=== PATIENT | female | born 1975 | race Caucasian/White ===

== ENCOUNTER 2021-05-31 17:45 | Emergency (ER) | payer OTHER ==
[2021-05-31] MEDS ORDERED: NA CHLORIDE 0.9% 1,000 ML ONE ×2 (20:41→22:51)
[2021-05-31 20:42] LABS: Absolute Lymphocytes (CBC) 2.2 K/uL (0.7-4.9); Basophils % 0.6 % (0-1.3); Hematocrit 38.4 % (36.0-45.0); Lymphocytes % 43.9 % (15.3-44.8); MPV 9.5 fL (7.6-11.3); RBC Red Blood Cell Count 3.93 M/uL (3.86-4.86)
[2021-05-31 21:11] LABS: Potassium 3.9 mmol/L (3.5-5.1)
--- NOTE | 2021-05-31 21:52 | RAD REPORT ---
EXAM DESCRIPTION: RAD - Chest Single View - 05/31/2021 8:57 pm CLINICAL HISTORY: Cough;Fever COMPARISON: None TECHNIQUE: AP portable chest image was obtained 05/31/2021 8:57 pm . FINDINGS: No focal consolidation. Slight increased markings in the left base relative to the right o n this baseline study. Minimal left base infiltrate is questioned and can be correlated with physical exam findings. Trachea is midline. No failure or volume overload. Heart and vasculature are normal. No measurable pleural effusion and no pneumothorax. No acute bony abnormality seen. No acute aortic f indings suspected. IMPRESSION: Baseline study showing slight increase in markings at the left base. Early left base pne umonia should be considered.
[2021-05-31 22:36] LABS: Urine Blood Negative (Negative); Urine Glucose Negative (Negative); Urine Protein Trace (Negative); Urine Specific Gravity >=1.030 (1.005-1.030)
[2021-05-31 22:39] LABS: Urine Specific Gravity/Preg >1.030 (1.005-1.030)
[2021-05-31 23:09] LABS: Urine Bacteria 20-50 /HPF (<20); Urine Mucus 3+ /HPF (NONE SEEN)
[2021-06-01] MEDS ORDERED: CEFTRIAXONE/SWI 1gm 1 GM/10 ML SYR ONE (00:01)
--- NOTE | 2021-06-01 00:55 | EDPHYS ---
Physician Documentation [facility] Name: Laura Cervantes Age: 45 yrs Sex: Female : 1975 Arrival Date: 05/31/2021 Time: 17:49 Bed 6 Private MD: ED Physician Neptali Vasquez HPI: 05/31 20:16 This 45 yrs old Female presents to ER via Ambulatory with complaints of pkl Fever, Chills. 20:16 The patient or guardian reports cough, with no sputum. Onset: The symptoms/episode pkl began/occurred 3 day(s) ago. Associated signs and symptoms: Pertinent positives: fever, sore throat, body aches and loss of taste. 20:16 Patient's tested positive for Covid 19 5 days ago. pkl Historical: - Allergies: 18:20 Sulfa (Sulfonamide Antibiotics); tw2 - Home Meds: 18:20 pantoprazole 20 mg oral TbEC 1 tab once daily [Active]; Zofran 4 mg Oral tab 2 tabs tw2 [Active]; - PMHx: 18:20 stomach cancer; tw2 - PSHx: 18:20 Appendectomy; uterus; multiple stomach surgeries; tw2 - Immunization history:: Client reports having NOT received the Covid vaccine. - Social history:: Smoking status: Patient denies any tobacco usage or history of. ROS: 20:16 Eyes: Negative for injury, pain, redness, and discharge. pkl 20:16 ENT: Positive for sore throat. 20:16 Neck: Negative for stiffness. 20:16 Cardiovascular: Negative for chest pain. 20:16 Respiratory: Positive for cough, with no reported sputum. 20:16 Abdomen/GI: Negative for abdominal pain, nausea, vomiting, and diarrhea. 20:16 Back: Negative for acute changes. 20:16 : Negative for urinary symptoms. 20:16 MS/extremity: Negative for acute changes. 20:16 Skin: Negative for rash. 20:16 Neuro: Negative for altered mental status, loss of consciousness. Exam: 20:16 Head/Face: Normocephalic, atraumatic. Eyes: Pupils equal round and reactive to light, pkl extra-ocular motions intact. Lids and lashes normal. Conjunctiva and sclera are non-icteric and not injected. Cornea within normal limits. Periorbital areas with no swelling, redness, or edema. ENT: Nares patent. No nasal discharge, no septal abnormalities noted. Tympanic membranes are normal and external auditory canals are clear. Oropharynx with no redness, swelling, or masses, exudates, or evidence of obstruction, uvula midline. Mucous membranes moist. Neck: Trachea midline, no thyromegaly or masses palpated, and no cervical lymphadenopathy. Supple, full range of motion without nuchal rigidity, or vertebral point tenderness. No Meningismus. Chest/axilla: Normal chest wall appearance and motion. Nontender with no deformity. No lesions are appreciated. Cardiovascular: Regular rate and rhythm with a normal S1 and S2. No gallops, murmurs, or rubs. Normal PMI, no JVD. No pulse deficits. Respiratory: Lungs have equal breath sounds bilaterally, clear to auscultation and percussion. No rales, rhonchi or wheezes noted. No increased work of breathing, no retractions or nasal flaring. Abdomen/GI: Soft, non-tender, with normal bowel sounds. No distension or tympany. No guarding or rebound. No evidence of tenderness throughout. Back: No spinal tenderness. No costovertebral tenderness. Full range of motion. Skin: Warm, dry with normal turgor. Normal color with no rashes, no lesions, and no evidence of cellulitis. MS/ Extremity: Pulses equal, no cyanosis. Neurovascular intact. Full, normal range of motion. Neuro: Awake and alert, GCS 15, oriented to person, place, time, and situation. Cranial nerves II-XII grossly intact. Motor strength 5/5 in all extremities. Sensory grossly intact. Cerebellar exam normal. Normal gait. Vital Signs: 18:19 BP 115 / 87; Pulse 99; Resp 17; Temp 98.2(TE); Pulse Ox 100% on R/A; Weight 58.97 kg tw2 (R); Height 5 ft. 1 in. (154.94 cm); 23:16 BP 115 / 78; Pulse 94; Resp 16; Pulse Ox 98% ; ea 06/01 01:00 BP 125 / 65; Pulse 88; Resp 18; Pulse Ox 98% on R/A; ea 05/31 18:19 Body Mass Index 24.56 (58.97 kg, 154.94 cm) tw2 MDM: 05/31 19:59 Patient medically screened. pkl 06/01 00:51 Data reviewed: vital signs, nurses notes, lab test result(s), radiologic studies. ED pkl course: Patient feeling better. Advised quaratine 10 days. To return if any difficulty breathing. Patient understood instructions. 05/31 20:12 Order name: CBC with Diff; Complete Time: 21:37 pkl 05/31 20:12 Order name: Chem 7; Complete Time: 21:37 pk 05/31 20:12 Order name: Strep; Complete Time: 21:37 pk 05/31 20:15 Order name: Lactate; Complete Time: 21:37 [facility] 05/31 20:57 Order name: Throat Culture [facility] 05/31 22:35 Order name: Urine --Ancillary (enter results); Complete Time: 22:53 [facility] 05/31 22:36 Order name: Urine Dipstick-Ancillary; Complete Time: 22:53 [facility] 05/31 22:38 Order name: Urine Culture [facility] 05/31 22:38 Order name: Urine Microscopic Only; Complete Time: 23:33 [facility] 05/31 22:42 Order name: SARS-COV-2 RT PCR; Complete Time: 22:53 [facility] 06/01 00:37 Order name: Lactate Sepsis 2 HR Follow-up; Complete Time: 00:50 [facility] 05/31 20:08 Order name: Urine Dipstick-Ancillary (obtain specimen); Complete Time: 22:35 05/31 20:14 Order name: XRAY CXR (1 view); Complete Time: 22:11 pkl Administered Medications: 05/31 20:21 Drug: NS 0.9% 1000 ml Route: IV; Rate: 1000 ml; Site: right antecubital; [facility] 06/01 01:12 Follow up: Response: No adverse reaction; IV Status: Completed infusion; IV Intake: ea 1000ml 05/31 21:15 Drug: NS 0.9% (30 ml/kg) 30 ml/kg Route: IV; Rate: bolus; Site: right hand; 06/01 01:12 Follow up: Response: No adverse reaction; IV Status: Completed infusion 05/31 23:41 Drug: Rocephin (cefTRIAXone) 1 grams Route: IV; Rate: calculated rate; Site: right hand; 06/01 01:12 Follow up: Response: No adverse reaction; IV Status: Completed infusion ea Disposition Summary: 06/01/21 00:54 Discharge Ordered Location: Home pkl Problem: new pkl Symptoms: have improved pkl Condition: Stable pkl Diagnosis - Positive Covid 19. Early pneumonia. Urinary tract infection pkl Followup: pkl - With: Private Physician - When: 2 - 3 days - Reason: Re-evaluation by your physician Discharge Instructions: - Discharge Summary Sheet pkl Forms: - Medication Reconciliation Form pkl - Thank You Letter pkl - Antibiotic Education pkl - Prescription Opioid Use pkl Prescriptions: - Zithromax Z-Angel 250 mg Oral Tablet - take 1 tablet by ORAL route as directed for 5 days Day 1 - take two (2) tablets pkl one time. Day 2, 3, 4 , 5 take one (1) tablet once daily.; 6 tablet; Refills: 0, Product Selection Permitted Signatures: Dispatcher [employer] EDNeptali Hill MD MD pkl Wise, Tara RN RN tw2 Magalys Rubalcava RN RN Marin Heredia2 Corrections: (The following items were deleted from the chart) 05/31 20:42 20:14 CORONAVIRUS+MR.LAB.BRZ ordered. EDMS EDMS 06/01 01:12 00:21 LACTATE+C.LAB.BRZ ordered. EDMS EDMS
--- NOTE | 2021-06-01 00:55 | ER ---
Nurse's Notes [facility] Name: Laura Cervantes Age: 45 yrs Sex: Female : 1975 Arrival Date: 05/31/2021 Time: 17:49 Bed 6 Private MD: Diagnosis: Positive Covid 19. Early pneumonia. Urinary tract infection Presentation: 05/31 18:19 Chief complaint: Patient states: i was with my Thursday and he tested POSITIVE tw2 for COVID, i started feeling bad Thursday. i lost my sense of taste today, congestion cough, chills fever. Coronavirus screen: chills, congestion, cough unrelated to allergies, fatigue, fever, runny nose, Client presents with at least one sign or symptom that may indicate coronavirus-19. Standard/surgical mask placed on the client. Provider contacted for isolation considerations. Ebola Screen: Patient denies travel to an Ebola-affected area in the 21 days before illness onset. Initial Sepsis Screen: Does the patient meet any 2 criteria? HR > 90 bpm. No. Patient's initial sepsis screen is negative. Does the patient have a suspected source of infection? No. Patient's initial sepsis screen is negative. Risk Assessment: Do you want to hurt yourself or someone else? Patient reports no desire to harm self or others. Onset of symptoms was May 31, 2021. 18:19 Method Of Arrival: Ambulatory tw2 18:19 Acuity: RUBI 3 tw2 Triage Assessment: 18:20 General: Appears in no apparent distress. Behavior is calm, cooperative, appropriate tw2 for age. Pain: Complains of pain in body aches. Historical: - Allergies: 18:20 Sulfa (Sulfonamide Antibiotics); tw2 - Home Meds: 18:20 pantoprazole 20 mg oral TbEC 1 tab once daily [Active]; Zofran 4 mg Oral tab 2 tabs tw2 [Active]; - PMHx: 18:20 stomach cancer; tw2 - PSHx: 18:20 Appendectomy; uterus; multiple stomach surgeries; tw2 - Immunization history:: Client reports having NOT received the Covid vaccine. - Social history:: Smoking status: Patient denies any tobacco usage or history of. Screenin:34 Abuse screen: Denies threats or abuse. Nutritional screening: No deficits noted. ea Tuberculosis screening: No symptoms or risk factors identified. Fall Risk None identified. Assessment: 20:32 General: Appears in no apparent distress. Behavior is calm, cooperative, appropriate ea for age. Pain: Denies pain. Neuro: Level of Consciousness is awake, alert, obeys commands, Oriented to person, place, time. Cardiovascular: Patient's skin is warm and dry. Respiratory: Airway is patent Respiratory effort is even, unlabored, Respiratory pattern is regular, symmetrical. Derm: Skin is pink, warm \T\ dry. 21:43 Reassessment: Patient and/or family updated on plan of care and expected duration. Pain ea level reassessed. Patient is alert, oriented x 3, equal unlabored respirations, skin warm/dry/pink. 23:16 Reassessment: Patient and/or family updated on plan of care and expected duration. Pain ea level reassessed. Patient is alert, oriented x 3, equal unlabored respirations, skin warm/dry/pink. 06/01 01:10 Reassessment: Patient and/or family updated on plan of care and expected duration. Pain ea level reassessed. Patient is alert, oriented x 3, equal unlabored respirations, skin warm/dry/pink. Discharge instruction given to patient verbalized the understanding of instruction. Vital Signs: 05/31 18:19 BP 115 / 87; Pulse 99; Resp 17; Temp 98.2(TE); Pulse Ox 100% on R/A; Weight 58.97 kg tw2 (R); Height 5 ft. 1 in. (154.94 cm); 23:16 BP 115 / 78; Pulse 94; Resp 16; Pulse Ox 98% ; ea 06/01 01:00 BP 125 / 65; Pulse 88; Resp 18; Pulse Ox 98% on R/A; ea 05/31 18:19 Body Mass Index 24.56 (58.97 kg, 154.94 cm) tw2 ED Course: 05/31 17:49 Patient arrived in ED. ds1 18:20 Triage completed. tw2 18:22 Arm band placed on. tw2 19:59 Neptali Vasquez MD is Attending Physician. pkl 20:15 Magalys Rubalcava, DENIZ is Primary Nurse. ea 20:34 Inserted saline lock: 20 gauge in right hand, using aseptic technique. Blood collected. ea 20:35 Patient has correct armband on for positive identification. Bed in low position. Call ea light in reach. Side rails up X2. 20:58 XRAY CXR (1 view) In Process Unspecified. EDMS 22:33 Urine collected: clean catch specimen, cloudy, urine Micro and urine culture sent to mw2 lab. 06/01 01:07 Primary Nurse role handed off by Magalys Rubalcava, RN mw2 01:10 No provider procedures requiring assistance completed. IV discontinued, intact, ea bleeding controlled, No redness/swelling at site. Pressure dressing applied. Administered Medications: 05/31 20:21 Drug: NS 0.9% 1000 ml Route: IV; Rate: 1000 ml; Site: right antecubital; ak2 06/01 01:12 Follow up: Response: No adverse reaction; IV Status: Completed infusion; IV Intake: ea 1000ml 05/31 21:15 Drug: NS 0.9% (30 ml/kg) 30 ml/kg Route: IV; Rate: bolus; Site: right hand; ea 06/01 01:12 Follow up: Response: No adverse reaction; IV Status: Completed infusion ea 05/31 23:41 Drug: Rocephin (cefTRIAXone) 1 grams Route: IV; Rate: calculated rate; Site: right hand;ea 06/01 01:12 Follow up: Response: No adverse reaction; IV Status: Completed infusion ea Intake: 01:12 IV: 1000ml; Total: 1000ml. ea Outcome: 00:54 Discharge ordered by . tracey 01:05 Discharged to home ambulatory. ak2 01:05 Condition: good 01:05 Discharge instructions given to patient, Prescriptions given X 01:05 Patient left the ED. ak2 01:12 Patient left the ED. ea Signatures: Dispatcher [employer] EDMS Neptali Vasquez MD MD pkl Sanford, Demi ds1 Radha Medeiros RN RN tw2 Magalys Rubalcava, Mee Cohen RN, ea mw2 Marin Dee
[2021-06-01 01:11] VITALS: TEMP 98.2
[2021-06-01 01:12] VITALS: O2SAT 98
[2021-06-01 01:46] VITALS: BP 125/65
== END 2021-06-01 01:12 | disposition home or self-care (01) ==
LOC: ER 17:45
DX: U07.1 COVID-19 (principal); J18.9 Pneumonia, unspecified organism; N39.0 Urinary tract infection, site not specified; Z88.2 Allergy status to sulfonamides; Z85.028 Personal history of other malignant neoplasm of stomach
CPT/HCPCS: 96365; 96361; 87070; 87088; 85025; 87086; 80048; 36415; 81025; 87081; 83605 ×2; 71045; 99284; 96366; U0003; J7030 ×2; 81003; 81015